=== PATIENT | female | born 1940 | race Asian ===

== ENCOUNTER 2024-02-01 17:33 | Inpatient (IN) | payer MEDICARE ==
[~2024-02-01] VITALS: Ht 157.5 cm; Wt 54.4 kg
[~2024-02-01 17:33] MED LIST: NITR100C6 PO
[2024-02-01 18:57] LABS: BASOPHILS % (AUTO) 0.5 % (0.0-2.0); EOSINOPHILS # (AUTO) 0.2 K/uL (0.0-0.7); EOSINOPHILS % (AUTO) 2.5 % (0.0-6.0); HEMATOCRIT 43 % (33-45); HEMOGLOBIN 14.2 g/dL (11.5-14.8); LYMPHOCYTES % (AUTO) 31.2 % (20.0-44.0); MEAN CORPUSCULAR HEMOGLOBIN 30 PG (26.0-33.0); MEAN CORPUSCULAR HGB CONC 33 g/dl (31.0-36.0); MEAN CORPUSCULAR VOLUME 89 fL (82-100); MONOCYTES # (AUTO) 0.5 K/uL (0.1-1.30); NEUTROPHILS # (AUTO) 3.8 K/uL (1.8-8.9); NEUTROPHILS % (AUTO) 58.8 % (43.0-81.0); PLATELET COUNT (AUTO) 220 K/uL (150-450); RED BLOOD CELL COUNT(AUTO) 4.81 MIL/uL (4.0-5.2); RED CELL DISTRIBUTION WIDTH 14.7 % (11.5-15.0); WHITE BLOOD COUNT (AUTO) 6.4 K/uL (4.3-11.0)
[2024-02-01 19:11] LABS: CALCIUM, SERUM 9.5 mg/dL (8.5-10.1); CARBON DIOXIDE 25 mmol/L (21-32); CHLORIDE 109 mmol/L (98-107); CREATININE 0.9 mg/dL (0.6-1.3); GLUCOSE 114 mg/dL (74-106); POTASSIUM 3.4 mmol/L (3.5-5.1); SODIUM SERUM 146 mmol/L (136-145); UREA NITROGEN, BLOOD 17 mg/dL (7-18)
[2024-02-01 19:15] LABS: ALANINE AMINOTRANSFERASE 30 U/L (12-78); ALBUMIN 3.5 g/dL (3.4-5.0); ALKALINE PHOSPHATASE 131 U/L (46-116); ASPARTATE AMINOTRANSFERASE 34 U/L (15-37); BILIRUBIN,DIRECT 0.2 mg/dL (0.0-0.2); BILIRUBIN,TOTAL 0.8 mg/dL (0.2-1.0); TOTAL PROTEIN, SERUM 7.3 g/dL (6.4-8.2)
[2024-02-01 19:16] LABS: ACETAMINOPHEN <10 ug/ml (10-30); ALCOHOL, BLOOD < 3 mg/dL (0-10); SALICYLATE 0.2 mg/dL (2.8-20.0)
[2024-02-01] MEDS ORDERED: OLAN2.5T3 PO ×2 (19:16)
[2024-02-01 21:15] VITALS: BP 112/79; TEMP 97.9; O2SAT 97
[2024-02-01] MEDS ORDERED: MAG HYDROX/AL HYDROX/SIMETH 30 ML UDC PO PRN (21:30)
[2024-02-01] MEDS ORDERED: MAGNESIUM HYDROXIDE 30 ML UDC PO PRN (21:30)
[2024-02-01] MEDS: BLOOD SUGAR DIAGNOSTIC 1 EACH STRIP IN ONE (21:37)
[2024-02-01] MEDS: POTASSIUM CHLORIDE 20 MEQ TAB.PRT.SR PO ONE (22:49)
[2024-02-01] MEDS: LORAZEPAM 0.5 MG TABLET PO PRN (23:51)
[2024-02-02] MEDS: ZOLPIDEM TARTRATE 5 MG TABLET PO PRN ×2 (01:52→22:33)
[2024-02-02] MEDS: ACETAMINOPHEN 325 MG TABLET PO PRN (02:01)
[2024-02-02 07:52] LABS: ALANINE AMINOTRANSFERASE 37 U/L (12-78); ALBUMIN 3.8 g/dL (3.4-5.0); ALKALINE PHOSPHATASE 133 U/L (46-116); ASPARTATE AMINOTRANSFERASE 48 U/L (15-37); BILIRUBIN,TOTAL 0.7 mg/dL (0.2-1.0); CALCIUM, SERUM 10.1 mg/dL (8.5-10.1); CARBON DIOXIDE 20 mmol/L (21-32); CHLORIDE 107 mmol/L (98-107); CREATININE 1.7 mg/dL (0.6-1.3); GLUCOSE 154 mg/dL (74-106); POTASSIUM 3.9 mmol/L (3.5-5.1); SODIUM SERUM 140 mmol/L (136-145); TOTAL PROTEIN, SERUM 7.5 g/dL (6.4-8.2); UREA NITROGEN, BLOOD 28 mg/dL (7-18)
[2024-02-02 07:55] LABS: CHOLESTEROL 186 mg/dL (<200); HDL CHOLESTEROL 99 mg/dL (40-60); LDL 76 mg/dL (0-99); TRIGLYCERIDES 77 mg/dL (30-150)
[2024-02-02 08:00] VITALS: BP 109/84; TEMP 97.9; O2SAT 97
[2024-02-02] MEDS: NITROFURANTOIN/MONOHYDRATE MACROCRYSTALS 100 MG CAPSULE PO SCH (08:15)
[2024-02-02] MEDS: OLANZAPINE 2.5 MG TABLET PO SCH (11:17)
[2024-02-02 16:05] VITALS: BP 87/65; TEMP 97.8; O2SAT 98
[2024-02-02] MEDS: IV NS 0.9% 1,000 ML IV ONE (16:53)
[2024-02-02 20:28] VITALS: BP 109/85; TEMP 97.9; O2SAT 98
[2024-02-03 07:34] LABS: BASOPHILS % (AUTO) 0.6 % (0.0-2.0); EOSINOPHILS # (AUTO) 0.2 K/uL (0.0-0.7); EOSINOPHILS % (AUTO) 3.1 % (0.0-6.0); HEMATOCRIT 39 % (33-45); HEMOGLOBIN 12.7 g/dL (11.5-14.8); LYMPHOCYTES # (AUTO) 1.1 K/uL (0.8-4.8); LYMPHOCYTES % (AUTO) 17.7 % (20.0-44.0); MEAN CORPUSCULAR HEMOGLOBIN 30 PG (26.0-33.0); MEAN CORPUSCULAR HGB CONC 33 g/dl (31.0-36.0); MEAN CORPUSCULAR VOLUME 91 fL (82-100); MONOCYTES # (AUTO) 0.4 K/uL (0.1-1.30); MONOCYTES % (AUTO) 6.9 % (2.0-12.0); NEUTROPHILS # (AUTO) 4.6 K/uL (1.8-8.9); NEUTROPHILS % (AUTO) 71.7 % (43.0-81.0); PLATELET COUNT (AUTO) 169 K/uL (150-450); RED BLOOD CELL COUNT(AUTO) 4.25 MIL/uL (4.0-5.2); RED CELL DISTRIBUTION WIDTH 14.8 % (11.5-15.0); WHITE BLOOD COUNT (AUTO) 6.5 K/uL (4.3-11.0)
[2024-02-03 08:00] VITALS: BP 129/59; TEMP 97.8; O2SAT 100
[2024-02-03 08:13] LABS: CALCIUM, SERUM 8.8 mg/dL (8.5-10.1); CARBON DIOXIDE 18 mmol/L (21-32); CHLORIDE 111 mmol/L (98-107); CREATININE 1.2 mg/dL (0.6-1.3); GLUCOSE 119 mg/dL (74-106); MAGNESIUM 2.4 mg/dL (1.8-2.4); PHOSPHORUS 3.6 mg/dL (2.5-4.9); POTASSIUM 3.5 mmol/L (3.5-5.1); SODIUM SERUM 144 mmol/L (136-145); UREA NITROGEN, BLOOD 35 mg/dL (7-18)
[2024-02-03 09:26] LABS: MAGNESIUM 2.6 mg/dL (1.8-2.4); PHOSPHORUS 3.6 mg/dL (2.5-4.9)
[2024-02-03 16:00] VITALS: BP 121/94; TEMP 97.8; O2SAT 96
[2024-02-03 20:56] VITALS: BP 100/76; TEMP 98.2; O2SAT 98
[2024-02-03] MEDS: TRAZODONE 50 MG TABLET PO SCH (21:28)
[2024-02-04 08:00] VITALS: BP 115/81; TEMP 97.7; O2SAT 97
[2024-02-04] MEDS: OLANZAPINE 2.5 MG TABLET PO SCH (12:17)
[2024-02-04 16:00] VITALS: BP 98/59; TEMP 98.1; O2SAT 100
[2024-02-04 20:00] VITALS: BP 98/59; TEMP 98; O2SAT 100
[2024-02-05 08:43] VITALS: BP 110/86; TEMP 97.8
[2024-02-05] MEDS: LORAZEPAM 1 MG TABLET PO PRN (15:34)
[2024-02-05 16:31] VITALS: BP 98/64; TEMP 97.8; O2SAT 97
[2024-02-05 20:00] VITALS: BP 99/84; TEMP 97.9; O2SAT 99
[2024-02-06 08:00] VITALS: BP 121/82; TEMP 97.5; O2SAT 99
[2024-02-06 08:04] LABS: BASOPHILS # (AUTO) 0.1 K/uL (0.0-0.2); EOSINOPHILS # (AUTO) 0.2 K/uL (0.0-0.7); EOSINOPHILS % (AUTO) 4.5 % (0.0-6.0); HEMATOCRIT 39 % (33-45); LYMPHOCYTES # (AUTO) 1.3 K/uL (0.8-4.8); LYMPHOCYTES % (AUTO) 23.4 % (20.0-44.0); MEAN CORPUSCULAR HEMOGLOBIN 30 PG (26.0-33.0); MEAN CORPUSCULAR HGB CONC 33 g/dl (31.0-36.0); MEAN CORPUSCULAR VOLUME 90 fL (82-100); MONOCYTES # (AUTO) 0.5 K/uL (0.1-1.30); NEUTROPHILS # (AUTO) 3.4 K/uL (1.8-8.9); NEUTROPHILS % (AUTO) 62.1 % (43.0-81.0); PLATELET COUNT (AUTO) 149 K/uL (150-450); RED BLOOD CELL COUNT(AUTO) 4.38 MIL/uL (4.0-5.2); RED CELL DISTRIBUTION WIDTH 14.5 % (11.5-15.0); WHITE BLOOD COUNT (AUTO) 5.5 K/uL (4.3-11.0)
[2024-02-06 08:10] LABS: CALCIUM, SERUM 9.3 mg/dL (8.5-10.1); CARBON DIOXIDE 23 mmol/L (21-32); CHLORIDE 108 mmol/L (98-107); CREATININE 0.9 mg/dL (0.6-1.3); GLUCOSE 100 mg/dL (74-106); MAGNESIUM 2.2 mg/dL (1.8-2.4); POTASSIUM 3.9 mmol/L (3.5-5.1); SODIUM SERUM 141 mmol/L (136-145); UREA NITROGEN, BLOOD 33 mg/dL (7-18)
[2024-02-06 16:00] VITALS: BP 126/80; TEMP 98.6; O2SAT 98
[2024-02-06 20:00] VITALS: BP 104/81; TEMP 97.9; O2SAT 99
[2024-02-06 20:25] VITALS: BP 104/84; TEMP 97.9; O2SAT 99
[2024-02-07 08:00] VITALS: BP 142/76; TEMP 98; O2SAT 99
[2024-02-07 21:28] VITALS: BP 100/64; TEMP 98.2; O2SAT 99
[2024-02-08 08:00] VITALS: BP 130/74; TEMP 98.6; O2SAT 95
[2024-02-08 16:00] VITALS: BP 123/80; TEMP 97.6; O2SAT 98
[2024-02-08 20:29] VITALS: BP 97/69; TEMP 97.9; O2SAT 98
[2024-02-09 08:00] VITALS: BP 128/61; TEMP 98.7; O2SAT 98
[2024-02-09] MEDS ORDERED: LORAZEPAM 0.5 MG TABLET PO PRN (11:00)
[2024-02-09 16:00] VITALS: BP 119/53; TEMP 97.9; O2SAT 100
[2024-02-09 20:53] VITALS: BP 97/63; TEMP 97.9; O2SAT 100
[2024-02-09] MEDS: OLANZAPINE 5 MG TABLET PO SCH (22:05)
[2024-02-10 08:00] VITALS: BP 108/77; TEMP 97.8; O2SAT 94
[2024-02-10] MEDS: OLANZAPINE 2.5 MG TABLET PO SCH (09:06)
[2024-02-10 16:00] VITALS: BP 107/65; TEMP 98.2; O2SAT 100
[2024-02-10 20:23] VITALS: BP 111/74; TEMP 98.4; O2SAT 98
[2024-02-10] MEDS: TRAZODONE 50 MG TABLET PO SCH (21:06)
[2024-02-11 08:00] VITALS: BP 121/71; TEMP 97.4; O2SAT 97
[2024-02-11 16:00] VITALS: BP 104/66; TEMP 98; O2SAT 97
[2024-02-11 20:00] VITALS: BP 101/60; TEMP 97.8; O2SAT 99
[2024-02-12 08:00] VITALS: BP 98/58; TEMP 97.9; O2SAT 97
[2024-02-12 20:00] VITALS: BP 95/59; TEMP 97.9; O2SAT 99
[2024-02-13 08:00] VITALS: BP 110/60; TEMP 98.6; O2SAT 98
[2024-02-13] MEDS: Z GUARD REMEDY 4 OZ OINT TP SCH (08:38)
== END 2024-02-13 11:25 | DRG 885 ==
LOC: ER 17:43 → GPS 20:54
PROVIDERS: ADMIT Psychiatry & Neurology Psychiatry; ATTEND Nurse Practitioner Family
DX: F29 Unspecified psychosis not due to a substance or known physiological condition (principal); N17.0 Acute kidney failure with tubular necrosis; N39.0 Urinary tract infection, site not specified; F03.918 Unspecified dementia, unspecified severity, with other behavioral disturbance; E44.0 Moderate protein-calorie malnutrition; M62.82 Rhabdomyolysis; G93.49 Other encephalopathy; M48.54XA Collapsed vertebra, not elsewhere classified, thoracic region, initial encounter for fracture; F02.83 Dementia in other diseases classified elsewhere, unspecified severity, with mood disturbance; F02.818 Dementia in other diseases classified elsewhere, unspecified severity, with other behavioral disturbance; B96.89 Other specified bacterial agents as the cause of diseases classified elsewhere; D75.839 Thrombocytosis, unspecified; E11.9 Type 2 diabetes mellitus without complications; E83.42 Hypomagnesemia; E86.0 Dehydration; E87.6 Hypokalemia; I10 Essential (primary) hypertension; Z20.822 Contact with and (suspected) exposure to COVID-19; Z73.6 Limitation of activities due to disability; F25.0 Schizoaffective disorder, bipolar type; M48.07 Spinal stenosis, lumbosacral region; F32.A Depression, unspecified; G20.A1 Parkinson's disease without dyskinesia, without mention of fluctuations; Z68.21 Body mass index [BMI] 21.0-21.9, adult
CPT/HCPCS: 36415; 73564-TC; 80048-TC; 80053-TC; 80061-TC; 80076-TC; 82550-TC; 82553; 82962-TC; 83735-TC; 84100-TC; 85025-TC; 87081-TC; 93970-TC; 97110-TC; 97116-TC; 97530-TC; A4223; G0480; J7030